=== PATIENT | female | born 1995 | race African-American/Black ===

== ENCOUNTER 2022-01-04 15:58 | Emergency (ER) | payer SELFPAY ==
[2022-01-04 16:04] VITALS: BP 132/78; PULSE 99; RESP 16; TEMP 37.1; O2SAT 99
--- NOTE | 2022-01-04 18:16 | ED.GENADUL_ITS ---
Discharge Plan Disposition Patient Disposition: HOME Condition: Stable Discharge Details Clinical Impression: Breast lump Primary Care Provider: Karrie Larkin ED Provider: Wale Brizuela Home Meds and New Rx's Prescriptions: No Action No Known Home Meds 0RF Discharge Instructions Instructions: Breast Mass (ED) Additional Instructions: It will be important for you to obtain your ultrasound tomorrow. Please call the provided phone number for arrangement of your ultrasound. We have also placed you on a follow-up list with [facility] and call their office for arrangement of this appointment after your ultrasound has been performed. Referrals: Robina Wall DO [OSTEOPATHIC DOCTOR] - 3 days (Call the office for arrangement of all up appointment) Medical Decision Making Patient presenting to the emergency department for chief complaint of lump on right breast. Patient reports that her breast felt odd for the last week and then 2 days ago she noticed a lump just medial to the nipple. Patient denies any other skin abnormalities, denies fever chills, denies lymphadenopathy. Patient is adopted so does not know full family medical history. Patient is otherwise a young healthy 26-year-old female. She does state that she is midcycle for her menstrual cycle but denies any vaginal or other symptoms. Physical exam shows an approximate 2 cm lump just medial to the right nipple. Bedside ultrasound was utilized and area does not appear abscessed and there are no external symptoms or patient complaints that would make me suggest that this is a mastitis or abscess. No drainage noted from the nipple and no lymphadenopathy noted on exam. Exam is otherwise benign. Will perform baseline labs given that patient does not have a primary care provider and just establish baseline along with evaluation of WBC for any known abnormalities. Otherwise there is no ultrasound availability so we will plan on having patient return tomorrow for breast ultrasound. Did speak with Dr. Wall with [facility] in regards to initial ER work-up, outpatient ultrasound, and follow-up. She was in agreement with discussed plan of care and no further recommendations were given. Discussed all of this with patient which was agreeable and also had no further questions after discussion of work-up for his standard breast mass. Review of baseline labs is nondiagnostic with no emergent findings at this time. After discussion of diagnosis and plan of care patient has no further needs, questions, or concerns and states clear understanding to return to the emergency department for any worsening symptoms. Lab Data Labs: Laboratory Tests Range/Units 01/04/22 01/04/22 19:05 19:05 WBC (4.4-10.8) 10^3/uL 4.15 L RBC (3.93-5.22) 10^6/uL 4.14 Hgb (11.2-15.7) g/dL 11.2 Hct (36.0-46.0) % 36.3 MCV (80-95) fL 87.7 MCH (27.0-33.0) pg 27.1 MCHC (32.0-36.0) % 30.9 L RDW (11.7-14.6) % 17.7 H Plt Count (130-400) 10^3/uL 273 MPV (8.0-11.0) fL 10.1 Immature Gran % 0.5 Neutrophils % 52.0 Lymphocytes % 35.9 Monocytes % 8.9 Eosinophils % 1.7 Basophils % 1.0 Nucleated RBC % % 0 Absolute Neutrophils (1.2-6.7) 10^3/uL 2.16 Absolute Lymphocytes (1.2-3.4) 10^3/uL 1.49 Absolute Monocytes (0.1-0.8) 10^3/uL 0.37 Absolute Eosinophils (0.0-0.7) 10^3/uL 0.07 Absolute Basophils (0.0-0.2) 10^3/uL 0.04 Sodium (136-145) mmol/L 144 Potassium (3.5-5.1) mmol/L 3.8 Chloride (98-107) mmol/L 106 Carbon Dioxide (21.0-32.0) mmol/L 26.9 Anion Gap (3-11) mmol/L 11.1 H BUN (7-18) mg/dL 8 Creatinine (0.55-1.02) mg/dL 0.6 Estimated GFR/1.73 m2 (mL/min/1.73m2) >= 60.00 Glucose (74-106) mg/dL 76 Calcium (8.5-10.1) mg/dL 9.3 Total Bilirubin (0.2-1.0) mg/dL 0.2 AST (15-37) U/L 53 H ALT (14-59) U/L 48 Alkaline Phosphatase (46-116) U/L 80 Total Protein (6.4-8.2) g/dL 7.8 Albumin (3.4-5.0) g/dL 4.1 HPI General Mode of arrival: ambulatory . Date/Time Provider Initiated Documentation: 01/04/22 16:15 . Limitations to Documentation: no limitations . Information obtained by: patient, RN notes reviewed and old records reviewed . History of Present Illness 26 year old F presents to the emergency department with the chief complaint of Right breast lump, Quality is described as other (denies pain), and is localized to the right (breast). Patient reports no radiation. Patient started experiencing this week(s) (1) and it has been constant. improves with No relieving factors improve symptom(s), No exacerbating factors reported . Patient notes no other symptoms.. Patient did receive the following treatments prior to arrival, none Related Data Home Medications Medication Instructions Recorded Confirmed Unknown [No Known Home Meds] 01/04/22 01/04/22 Allergies Allergy/AdvReac Type Severity Reaction Status Date / Time banana Allergy Unverified 01/04/22 16:08 General Stated Complaint: GenMedical RIMA: 3 Review of Systems Constitutional Constitutional: Denies chills and Denies fever(s) Cardiovascular Cardiovascular: Denies chest pain Respiratory Respiratory: Denies cough Gastrointestinal Gastrointestinal: Denies abdominal pain Genitourinary Genitourinary: Denies nipple discharge Integumentary/Breasts Skin/Breast: Reports as per HPI, Denies bleeding lesions, Denies breast swelling, Denies breast skin changes, Denies breast pain, Reports breast mass, Denies change in breast shape and Denies nipple discharge Hematologic/Lymphatic Hematologic/Lymphatic: Denies lymphadenopathy PFSH All Active Problems (Updated 01/04/22 @ 19:43 by Wale Brizuela NP) Breast lump (Acute) Social History Smoking/Tobacco Use Status: Never Smoking risk assessment performed?: Yes Substance use type: does not use Exam Const General: cooperative, no acute distress and not ill appearing Orientation: alert, awake and oriented x3 Chest Chest: other (ASSEMBLY PERSON present for exam) Breast inspection: normal inspection of the breasts and normal inspection of the axillae Breast palpation: normal palpation of the axillae, no axillary lymphadenopathy and abnormal palpation of the breast right lower inner mass (2cm nisa ) fixed and firm; Negative for nontender and not fluctuant and normal areola; Negative for no nipple discharge and no inuduration Chest/axillae images: 1. lump Resp Effort & Inspection: normal respiratory effort, able to speak in complete sentences and no respiratory distress Auscultation: clear to auscultation bilaterally Cardio Rate: regular rate Rhythm: regular rhythm Heart Sounds: S1 normal and S2 normal Skin General skin exam: no rashes or lesions noted Neuro General: patient alert, patient awake, patient oriented x3, moves all extremities and no focal motor deficits Sensory Exam: no sensory deficits noted Course Vital Signs Vital signs: Vital Signs Temperature 37.1 C 01/04/22 16:04 Pulse 99 H 01/04/22 16:04 Respiratory Rate 16 01/04/22 16:04 Blood Pressure 132/78 01/04/22 16:04 Pulse Oximetry 99 01/04/22 16:04 Temperature 37.1 C 01/04/22 16:04 Temperature Source Skin 01/04/22 16:04 Pulse 99 H 01/04/22 16:04 Respiratory Rate 16 01/04/22 16:04 Respiratory Effort 01/04/22 16:04 Blood Pressure 132/78 01/04/22 16:04 Blood Pressure Position Sitting 01/04/22 16:04 Pulse Oximetry 99 01/04/22 16:04 Oxygen Delivery Method Room Air 01/04/22 16:04 Oxygen Flow Rate 0 01/04/22 16:04 Pain Level 0 01/04/22 16:04
[2022-01-04 19:12] LABS: Abs Immature Grans 0.02 10^3/uL (0.0-0.06); Absolute Basophil Count 0.04 10^3/uL (0.0-0.2); Absolute Eosinophil Count 0.07 10^3/uL (0.0-0.7); Absolute Lymphocyte Count 1.49 10^3/uL (1.2-3.4); Absolute Monocyte Count 0.37 10^3/uL (0.1-0.8); Absolute Neutrophil Count 2.16 10^3/uL (1.2-6.7); Eosinophils % 1.7; HCT 36.3 % (36.0-46.0); HGB 11.2 g/dL (11.2-15.7); Immature Grans % 0.5; Lymphocytes % 35.9; MCH 27.1 pg (27.0-33.0); MCHC 30.9 % (32.0-36.0); MCV 87.7 fL (80-95); MPV 10.1 fL (8.0-11.0); Monocytes % 8.9; Nucleated RBC 0 %; Platelet Count 273 10^3/uL (130-400); RBC 4.14 10^6/uL (3.93-5.22); RDW 17.7 % (11.7-14.6); RDW-SD 56.5 fL; WBC 4.15 10^3/uL (4.4-10.8)
[2022-01-04 19:26] LABS: ALT 48 U/L (14-59); AST 53 U/L (15-37); Albumin 4.1 g/dL (3.4-5.0); Alkaline Phosphatase 80 U/L (46-116); Anion Gap 11.1 mmol/L (3-11); BUN 8 mg/dL (7-18); Bilirubin, Total 0.2 mg/dL (0.2-1.0); CO2 26.9 mmol/L (21.0-32.0); CREATININE 0.6 mg/dL (0.55-1.02); Calcium 9.3 mg/dL (8.5-10.1); Chloride 106 mmol/L (98-107); Glucose 76 mg/dL (74-106); Potassium 3.8 mmol/L (3.5-5.1); Sodium 144 mmol/L (136-145); Total Protein 7.8 g/dL (6.4-8.2)
[2022-01-04 19:35] VITALS: BP 135/76; PULSE 87; RESP 16; TEMP 37; O2SAT 99
[2022-01-04 20:01] VITALS: BP 135/76; PULSE 87; RESP 16; TEMP 37; O2SAT 99
== END 2022-01-04 20:01 | disposition home or self-care (01) ==
PROVIDERS: Emergency Provider Nurse Practitioner Family
DX: N63.14 Unspecified lump in the right breast, lower inner quadrant (principal)
CPT/HCPCS: 36415; 80053; 99283; 85025; 99282

== ENCOUNTER 2022-02-03 16:00 | Emergency (ER) | payer SELFPAY ==
[2022-02-03 16:05] VITALS: BP 129/73; PULSE 98; RESP 16; TEMP 36.3; O2SAT 98
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
[2022-02-03] MEDS: Amoxicillin 875/Clav. 125 TAB PO (16:57)
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
--- NOTE | 2022-02-03 17:11 | NUR.NOTE ---
Nursing Note: PT INFO GIVEN TO CARE MANAGEMENT TO ESTABLISH CARE. JUNIOR, ED
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
== END 2022-02-03 17:53 | disposition home or self-care (01) ==
PROVIDERS: Emergency Provider Physician Assistant
DX: S61.250A Open bite of right index finger without damage to nail, initial encounter (principal); W50.3XXA Accidental bite by another person, initial encounter
CPT/HCPCS: 90471; 99284; 73140; 99283

== ENCOUNTER 2022-06-24 03:53 | Emergency (ER) | payer SELFPAY ==
[2022-06-24] VITALS (23 sets, daily range): BP systolic 128–157; BP diastolic 73–98; PULSE 88–118; RESP 10–29; TEMP 36.5; O2SAT 98–100
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
== END 2022-06-24 07:20 | disposition home or self-care (01) ==
LOC: ER 07:26
PROVIDERS: Emergency Provider Emergency Medicine
DX: F10.120 Alcohol abuse with intoxication, uncomplicated (principal); Y90.9 Presence of alcohol in blood, level not specified
CPT/HCPCS: 99283; 99282

== ENCOUNTER 2022-08-12 08:09 | Emergency (ER) | payer SELFPAY ==
[2022-08-12 08:15] VITALS: BP 132/67; PULSE 98; RESP 16; TEMP 37; O2SAT 99
--- NOTE | 2022-08-12 09:06 | ED.GENADUL_ITS ---
Discharge Plan Disposition Patient Disposition: Home Condition: Stable Discharge Details Clinical Impression: Cellulitis Primary Care Provider: Chaya,Local ED Provider: Wale Brizuela Home Meds and New Rx's Prescriptions: New cephalexin 500 mg tablet 500 mg PO QID 7 Days Qty: 28 0RF sulfamethoxazole-trimethoprim [Bactrim DS] 800-160 mg tablet 1 tab PO BID 7 Days Qty: 14 0RF Discharge Instructions Instructions: Cellulitis (ED) Additional Instructions: Allow wound to be open to air and dry out. You may clean the area with mild so ap and water otherwise do not apply any other products to wound. You may cover it at night for sleep but again it will be important to let this wound dry out. Please take antibiotics as prescribed and you should be seeing signs of improvement by Monday morning. If you notice any drastic worsening or change in your condition or lack of improvement please feel free to return to the emergency department or be reevaluated by local urgent care. Referrals: Primary Care Provider [Outside] - 1 week (If not improving) Discharge Data Discharge Date/Time-TO BE ENTERED AT DEPARTURE: 08/12/22 18:31 Medical Decision Making Patient presenting to the emergency department for chief complaint of left leg infection. Patient reports that she had some blisters appear to her left lower leg approximately a month ago. She was seen multiple times at other facilities and stated they were benign and that they will heal on their own. Over the last week or so these lesions and fluid-filled blisters opened up and started to become red and odorous with increasing tenderness. Patient denies fever chills, or other medical complaints. Physical exam shows open wounds to left lower leg with 2 of the 4 healing and 2 of them open with surrounding erythema. Findings to suggest cellulitis. We will start patient on antibiotics. We will also include coverage for MRSA given patient stating history of MRSA. Patient denies any IV drug use, vital signs are stable and patient is afebrile so I do not feel that patient needs labs or IV antibiotics at this time. Return and follow- up precautions were discussed. After discussion of diagnosis and plan of care patient has no further needs, questions, or concerns and states clear understanding to return to the emergency department for any worsening symptoms. This documentation was generated using [id number] system, please disregard any oddities of phrase or misspellings. Sign Out No HPI General Mode of arrival: ambulatory . Date/Time Provider Initiated Documentation: 08/12/22 08:24 . Limitations to Documentation: no limitations . Information obtained by: patient and RN notes reviewed . History of Present Illness 27 year old F presents to the emergency department with the chief complaint of left leg infection , described as moderate, with intensity rated at 6. Quality is described as aching, and is localized to the left and lower extremity. Patient started experiencing this week(s) (4) and it has been constant. No relieving factors improve symptom(s), No exacerbating factors reported . Patient notes no other symptoms.. Patient did receive the following treatments prior to arrival, none Related Data Home Medications Medication Instructions Recorded Confirmed cephalexin 500 mg tablet 500 mg PO QID 7 days #28 tabs 08/12/22 sulfamethoxazole 800 1 tab PO BID 7 days #14 tabs 08/12/22 mg-trimethoprim 160 mg tablet (Bactrim DS) Previous Rx's Medication Instructions Recorded cephalexin 500 mg tablet 500 mg PO QID 7 days #28 tabs 08/12/22 sulfamethoxazole 800 1 tab PO BID 7 days #14 tabs 08/12/22 mg-trimethoprim 160 mg tablet (Bactrim DS) Allergies Allergy/AdvReac Type Severity Reaction Status Date / Time banana Allergy Unverified 08/12/22 08:21 General Stated Complaint: RashLesion RIMA: 3 Review of Systems Narrative: 6 systems reviewed and unremarkable except what is marked below. Constitutional Constitutional: Denies chills and Denies fever(s) Gastrointestinal Gastrointestinal: Denies nausea Integumentary/Breasts Skin/Breast: Reports as per HPI, Reports non-healing lesions, Reports erythema, Denies rash, Reports skin pain and Reports wounds PFSH All Active Problems (Updated 08/12/22 @ 09:08 by Wale Brizuela NP) Cellulitis (Acute) Medical History No significant past medical history Surgical History No significant past surgical history Social History Smoking/Tobacco Use Status: Current every day Tobacco Type: cigarettes Smoking risk assessment performed?: Yes Drug use: Never Substance use type: does not use Do you feel safe at home: Yes (homeless) Do you feel safe in your relationship?: Yes Exam Const General: cooperative, no acute distress and not ill appearing Orientation: alert, awake and oriented x3 Resp Effort & Inspection: normal respiratory effort, able to speak in complete sentences and no respiratory distress Cardio Rate: regular rate Rhythm: regular rhythm Pulses: normal peripheral pulses Skin General skin exam: no rashes or lesions noted Lesions: lesion noted bulla left lateral lower leg Neuro General: patient alert, patient awake, patient oriented x3, moves all extremities and no focal motor deficits Sensory Exam: no sensory deficits noted Course Vital Signs Vital signs: Vital Signs Temperature 37.0 C 08/12/22 08:15 Pulse 98 H 08/12/22 08:15 Respiratory Rate 16 08/12/22 08:15 Blood Pressure 132/67 08/12/22 08:15 Pulse Oximetry 99 08/12/22 08:15 Temperature 37.0 C 08/12/22 08:15 Temperature Source Tympanic 08/12/22 08:15 Pulse 98 H 08/12/22 08:15 Respiratory Rate 16 08/12/22 08:15 Respiratory Effort Non-Labored 08/12/22 08:17 Blood Pressure 132/67 08/12/22 08:15 Blood Pressure Position Sitting 08/12/22 08:15 Pulse Oximetry 99 08/12/22 08:15 Oxygen Delivery Method Room Air 08/12/22 08:15 Oxygen Flow Rate 0 08/12/22 08:15 Pain Level 6 08/12/22 08:15 Lab/Test Results Lab/Test Results: POC- Test(urine) Negative PAWSS Have you Been Recently Intoxicated or Drunk Within the Last 30 days?: No Have you Ever Experienced Previous Episodes of Alcohol Withdrawal?: No Have you ever Experienced Withdrawal Seizures?: No Have you ever Experienced Delirium Tremens(DT)s?: No Have you ever undergone Alcohol Rehabilitation Treatment (i.e, inpt ot outp atient treatment programs)?: No Have you ever Experienced Blackouts?: No Have you ever Combined Alcohol with other Downers within the last 90 days?: No Have you ever Combined Alcohol with any other Substance of Abuse during the last 90 days?: No Result: 0
== END 2022-08-12 18:31 | disposition home or self-care (01) ==
PROVIDERS: Emergency Provider Nurse Practitioner Family
DX: L03.116 Cellulitis of left lower limb (principal)
CPT/HCPCS: 81025; 99283